=== PATIENT | male | born 2000 | race Two or more races ===

== ENCOUNTER 2020-08-06 13:39 | Emergency (ER) | payer OTHER ==
[2020-08-06] MEDS ORDERED: Sodium Chloride 0.9% 2.5 ML Syringe FLUSH PRN (13:55)
[2020-08-06] MEDS ORDERED: Ondansetron 4 MG/2 ML SDV IVPUSH ONE (13:55)
[2020-08-06] MEDS ORDERED: Sodium Chloride 0.9% 10 ML Syringe FLUSH PRN (13:55)
[2020-08-06] MEDS ORDERED: HYDROmorphone 1 MG/ML Syringe IVPUSH ONE ×3 (13:55→16:04)
[2020-08-06] MEDS ORDERED: Diphtheria,Pertussis(Acell),Tetanus Vaccine 0.5 ML Syringe IM ONE (14:09)
--- NOTE | 2020-08-06 14:09 | EDM.PDOC ---
ED HPI GENERAL MEDICAL PROBLEM - General Chief Complaint: Lower Extremity Injury/Pain Stated Complaint: LFT BIG TOE Time Seen by Provider: 08/06/20 13:44 Source of Information: Reports: Patient History Limitations: Reports: No Limitations - History of Present Illness INITIAL COMMENTS - FREE TEXT/NARRATIVE: HISTORY AND PHYSICAL: History of present illness: The patient is a 19-year-old male who presents to the emergency department with a open wound to his right great toe after dropping a metal tank on his right foot while wearing his steel toed shoes. The patient is French-speaking and as such the sign language interpreter tablet was utilized during the interview and examination. The patient did not take any medications prior to arrival nor did he attempt to clean the wound up in any way. The patient is unsure of when his last tetanus was. Review of systems: As per history of present illness and below otherwise all systems reviewed and negative. Past medical history: As per history of present illness and as reviewed below otherwise noncontributory. Surgical history: As per history of present illness and as reviewed below otherwise noncontributory. Social history: See social history for further information Family history: As per history of present illness and as reviewed below otherwise noncontributory. Physical exam: General: Well developed and well nourished. Alert and orientated x 3. Nontoxic in appearance and in mild acute distress. Vital signs are stable and have been reviewed by me. Nursing notes were reviewed. HEENT: Atraumatic, normocephalic, pupils equal and reactive bilaterally, negative for conjunctival pallor or scleral icterus, mucous membranes moist, TMs normal bilaterally, throat clear, neck supple, nontender, trachea midline. No drooling or trismus noted. No meningeal signs. No hot potato voice noted. Lungs: Clear to auscultation bilaterally. No wheezes, rales, or rhonchi. Chest nontender. Normal work of breathing, no accessory muscles used. Heart: S1S2, regular rate and rhythm without overt murmur, gallops, or rubs. No JVD. No peripheral edema Abdomen: Soft, nondistended, nontender. Normoactive bowel sounds. Negative for masses or costovertebral tenderness. Skin: Left great toe medial aspect at base of nail bed lacerated extending up to medial tip of toe nail. The toe nail is hanging on by medial skin flap. Lucinda rovascular intact. Skin warm & dry. No lesions or rashes noted. Hematologic: No petechiae or purpra. Mucosa appropriate color and normal nail bed color and refill. Extremities: See skin. Moves all other extremities per self without difficulty or deficits, negative for cords or calf pain. Neurovascular unremarkable. Neuro: Awake, alert, oriented. Cranial nerves II through XII unremarkable. Cerebellum unremarkable. Motor and sensory unremarkable throughout. Exam nonfocal. Psychiatric: Mood and affect are appropriate. Normal thought process. Answering questions appropriately. Notes: *This patient was seen and evaluated during the 2019 SARS-CoV-2 novel coronavirus pandemic period. Community viral transmission is ongoing at time of this encounter and the emergency department is operating under pandemic response procedures. As stated above the patient is an 18-year-old male who presents after dropping a metal tank on his left foot. His right great toe is open from the inner aspect around the nailbed. I will obtain an x-ray of his left foot. I have treated his pain with Dilaudid 1 mg and Zofran 4 mg IV. The patient states he is not allergic to any medications after using the sign language interpreter tablet. I have explained to the patient the need for a foot x-ray. I have ordered a tetanus vaccination. The patient's Findings/Impression: Bones: A crush type fracture is present in the distal tuft of the left 1st toe. There is also fracture in the base of the distal phalanx in the 2nd toe. No other osseous abnormality. Joint spaces: Unremarkable. Soft tissues: Soft tissue injury in the distal 1st toe. Using the sign language interpreter tablet the patient and his family members were informed of the open fracture and the need for IV antibiotics, Ancef 2 g IV. I explained the need for the suturing, and walking shoe and crutches. I also explained the need to follow-up with , the [facility] helicopter. I have made an appointment with the naval aircrewman helicopter for August 12 at 4 PM. The procedure note for suture. The patient tolerated well. I have talked with the patient about today's findings, in addition to providing specific details for plan of care. Reassessment at the time of disposition demonstrates that the patient is in no acute distress. The patient is stable for discharge, counseling was provided and we discussed in great detail signs and symptoms that would prompt them to return to the Emergency Department. Medication, follow up and supportive care measures were reviewed and discussed. Voices understanding and is agreeable to plan of care. Denies any further questi ons or concerns at this time. Diagnostics: Right foot x-ray Therapeutics: Dilaudid 2 mg, Zofran 1 mg Prescription:Left walking shoe patient to wear until follow-up with diet wrist for patient comfort and promote joint stabilization for healing. Adena 5/325mg 1 every 4-6 hours as needed for pain #28. Impression: Left great toe open fracture left second toe fracture Plan: 1. You were evaluated today on an emergent basis. Your were evaluated for your left big toe open area after a piece of equipment was dropped on it. You have a fracture of that last bone on your left big toe. You were treated with an antibiotic called [facility] for the open fracture. Your big toe was fixed by sutures. You will need to keep that area clean and dry. Do not submerge your foot in water. You can change your dressing after 24 hours and then daily. But keep a dressing and the walking boot on until you follow-up with the naval aircrewman helicopter. Your appointment with the naval aircrewman helicopter is on August 12 at 4 PM. You will need to use crutches until your follow-up with the naval air[facility]w[employer] helicopter. 2. I will prescribe you Adena 1 every 4-6 hours as needed for pain. 3. Keep the area clean and dry. Continue to monitor for signs of infection. Sutures to be removed in 7-10 days. 4. Tylenol and/or ibuprofen as needed for pain management. 5. Please follow-up with your primary care provider in the next 1-2 days. Return to the ED as needed and as discussed. Definitive disposition and diagnosis as appropriate pending reevaluation and review of above. Left Foot Pain Score (Numeric/FACES): 10 - Related Data Allergies Allergy/AdvReac Type Severity Reaction Status Date / Time No Known Allergies Allergy Verified 08/06/20 13:54 Home Meds: Home Meds . [No Known Home Meds] 08/06/20 [History] Past Medical History - Past Health History Medical/Surgical History: Denies Medical/Surgical History HEENT History: Reports: None Cardiovascular History: Reports: None Respiratory History: Reports: None Gastrointestinal History: Reports: None Genitourinary History: Reports: None Musculoskeletal History: Reports: None Neurological History: Reports: None Psychiatric History: Reports: None Endocrine/Metabolic History: Reports: None Hematologic History: Reports: None Immunologic History: Reports: None Oncologic (Cancer) History: Reports: None Dermatologic History: Reports: None - Infectious Disease History Infectious Disease History: Reports: None - Past Surgical History Head Surgeries/Procedures: Reports: None Social & Family History - Family History Family Medical History: No Pertinent Family History - Tobacco Use Tobacco Use Status *Q: Never Tobacco User - Caffeine Use Caffeine Use: Reports: None - Recreational Drug Use Recreational Drug Use: No Review of Systems - Review of Systems Review Of Systems: Comprehensive ROS is negative, except as noted in HPI. ED EXAM, GENERAL - Physical Exam Exam: See Below (See dictation) ED TRAUMA EXTREMITY PROCEDURES - Laceration/Wound Repair Left Medial Toe - Great Lac/Wound Length In cm: 3.5 Appearance: Subcutaneous Distal NVT: Neuro & Vascular Intact, No Tendon Injury Anesthetic Type: Local Local Anesthesia - Lidocaine (Xylocaine): 1% Plain Local Anesthetic Volume: 5cc Skin Prep: Saline Saline Irrigation (cc's): 500 Exploration/Debridement/Repair: Wound Explored, No Foreign Material Found Closed With: Sutures Suture Size: 4-0 Suture Type: Prolene, Interrupted Suture Size: 4-0 # of Sutures: 2 (nailbed) Repaired With: Vicryl Course - Vital Signs Last Recorded V/S: Last Vital Signs Temp 98.6 F 08/06/20 13:49 Pulse 78 08/06/20 16:28 Resp 18 08/06/20 16:28 BP 124/85 08/06/20 16:28 Pulse Ox 98 08/06/20 16:28 - Orders/Labs/Meds Orders: Active Orders 24 hr Category Date Time Status Vaccines to be Administered [RC] PER UNIT ROUTINE Care 08/06/20 14:09 Active Sodium Chloride 0.9% [Saline Flush] Med 08/06/20 13:55 Active 10 ml FLUSH ASDIRECTED PRN Sodium Chloride 0.9% [Saline Flush] Med 08/06/20 13:55 Active 2.5 ml FLUSH ASDIRECTED PRN DME for Discharge [COMM] Stat Oth 08/06/20 16:13 Ordered Saline Lock Insert [OM.PC] Stat Oth 08/06/20 13:55 Ordered Medication Orders Sodium Chloride (Sodium Chloride 0.9% 10 Ml Syringe) 10 ml FLUSH ASDIRECTED PRN PRN Reason: Keep Vein Open Last Admin: 08/06/20 13:59 Dose: 10 ml Documented by: VIBHA Sodium Chloride (Sodium Chloride 0.9% 2.5 Ml Syringe) 2.5 ml FLUSH ASDIRECTED PRN PRN Reason: Keep Vein Open Last Admin: 08/06/20 13:59 Dose: 2.5 ml Documented by: VIBHA Meds: Medications Generic Name Dose Route Start Last Admin Trade Name Freq PRN Reason Stop Dose Admin Sodium Chloride 10 ml 08/06/20 13:55 08/06/20 13:59 Sodium Chloride 0.9% 10 Ml Syringe FLUSH 10 ml ASDIRECTED PRN Administration Keep Vein Open Sodium Chloride 2.5 ml 08/06/20 13:55 08/06/20 13:59 Sodium Chloride 0.9% 2.5 Ml Syringe FLUSH 2.5 ml ASDIRECTED PRN Administration Keep Vein Open Discontinued Medications Generic Name Dose Route Start Last Admin Trade Name Freq PRN Reason Stop Dose Admin Diphtheria/Tetanus/Acell Pertussis 0.5 ml 08/06/20 14:09 08/06/20 14:29 Diphtheria,Pertussis(Acell),Tetanus Vaccine 0.5 Ml Syringe IM 08/06/20 14:10 0.5 ml .ONCE ONE Administration Hydromorphone HCl 1 mg 08/06/20 13:55 08/06/20 13:59 Hydromorphone 1 Mg/Ml Syringe IVPUSH 08/06/20 13:56 1 mg ONETIME ONE Administration Hydromorphone HCl 1 mg 08/06/20 14:21 08/06/20 14:30 Hydromorphone 1 Mg/Ml Syringe IVPUSH 08/06/20 14:22 1 mg ONETIME ONE Administration Hydromorphone HCl 1 mg 08/06/20 16:04 08/06/20 16:23 Hydromorphone 1 Mg/Ml Syringe IVPUSH 08/06/20 16:05 1 mg ONETIME ONE Administration Cefazolin Sodium/Dextrose 1 gm 50 mls @ 100 mls/hr 08/06/20 14:33 08/06/20 14:56 / Premix IV 08/06/20 15:02 100 mls/hr ONETIME ONE Administration Cefazolin Sodium/Dextrose 1 gm 50 mls @ 100 mls/hr 08/06/20 14:35 08/06/20 14:57 / Premix IV 08/06/20 15:04 100 mls/hr ONETIME ONE Administration Lidocaine 5 ml 08/06/20 15:12 08/06/20 15:18 Lidocaine 2% 5 Ml Sdv INJECT 08/06/20 15:13 Not Given ONETIME ONE Lidocaine HCl 5 ml 08/06/20 14:36 08/06/20 14:56 Lidocaine 1% 5 Ml Sdv INJECT 08/06/20 14:37 5 ml ONETIME ONE Administration Lidocaine HCl 5 ml 08/06/20 15:16 08/06/20 15:17 Lidocaine 1% 5 Ml Sdv INJECT 08/06/20 15:17 5 ml ONETIME ONE Administration Lidocaine HCl Confirm 08/06/20 15:13 08/06/20 15:18 Lidocaine 1% 5 Ml Sdv Administered 08/06/20 15:14 Not Given Dose 5 ml .ROUTE .STK-MED ONE Octyl Cyanoacrylate 1 applic 08/06/20 16:07 08/06/20 16:25 Octyl 2-Cyanoacrylate 1 Tube TOP 08/06/20 16:08 1 applic ONETIME ONE Administration Octyl Cyanoacrylate Confirm 08/06/20 16:07 08/06/20 16:25 Octyl 2-Cyanoacrylate 1 Tube Administered 08/06/20 16:08 Not Given Dose 1 applic .ROUTE .STK-MED ONE Ondansetron HCl 4 mg 08/06/20 13:55 08/06/20 13:59 Ondansetron 4 Mg/2 Ml Sdv IVPUSH 08/06/20 13:56 4 mg ONETIME ONE Administration Departure - Departure Time of Disposition: 16:33 Disposition: Home, Self-Care 01 Clinical Impression: Open fracture of great toe Qualifiers: Encounter type: initial encounter Phalanx: distal Fracture alignment: displaced Laterality: left Qualified Code(s): S92.422B - Displaced fracture of distal phalanx of left great toe, initial encounter for open fracture Fracture of second toe, left, closed Qualifiers: Encounter type: initial encounter Qualified Code(s): S92.502A - Displaced unspecified fracture of left lesser toe(s), initial encounter for closed fracture Contusion Qualifiers: Encounter type: initial encounter Contusion area: foot Laterality: left Qualified Code(s): S90.32XA - Contusion of left foot, initial encounter - Discharge Information *PRESCRIPTION DRUG MONITORING PROGRAM REVIEWED*: Not Applicable *COPY OF PRESCRIPTION DRUG MONITORING REPORT IN PATIENT DONYA: Not Applicable Instructions: Toe Fracture, [id number], Laceration Care, Adult Referrals: PCP,None [Primary Care Provider] - Forms: ED Department Discharge Additional Instructions: The following information is given to patients seen in the emergency department who are being discharged to home. This information is to outline your options for follow-up care. We provide all patients seen in our emergency department with a follow-up referral. The need for follow-up, as well as the timing and circumstances, are variable depending upon the specifics of your emergency department visit. If you don't have a primary care physician on staff, we will provide you with a referral. We always advise you to contact your personal physician following an emergency department visit to inform them of the circumstance of the visit and for follow-up with them and/or the need for any referrals to a consulting specialist. The emergency department will also refer you to a specialist when appropriate. This referral assures that you have the opportunity for follow-up care with a specialist. All of these measure are taken in an effort to provide you with optimal care, which includes your follow-up. Under all circumstances we always encourage you to contact your private physician who remains a resource for coordinating your care. When calling for follow-up care, please make the office aware that this follow-up is from your recent emergency room visit. If for any reason you are refused follow-up, please contact the [facility] Emergency Department at and asked to speak to the emergency department charge nurse. Dr. Osmany Estevez [address] [place] [address] Appointment August 12 @ 4pm. Occupational health clinic at [facility] [address] [place] [address] fax [phone] Plan: 1. You were evaluated today on an emergent basis. Your were evaluated for your left big toe open area after a piece of equipment was dropped on it. You have a fracture of that last bone on your left big toe. You were treated with an antibiotic called Ancef for the open fracture. Your big toe was fixed by sutures. You will need to keep that area clean and dry. Do not submerge your foot in water. You can change your dressing after 24 hours and then daily. But keep a dressing and the walking boot on until you follow-up with the naval air[facility]wman helicopter. Your appointment with the naval aircrewman helicopter is on August 12 at 4 PM. You will need to use crutches until your follow-up with the naval aircrewman helicopter. 2. I will prescribe you Adena 1 every 4-6 hours as needed for pain. 3. Keep the area clean and dry. Continue to monitor for signs of infection. Sutures to be removed in 7-10 days. 4. Tylenol and/or ibuprofen as needed for pain management. 5. Please follow-up with your primary care provider in the next 1-2 days. Return to the ED as needed and as discussed. Definitive disposition and diagnosis as appropriate pending reevaluation and review of above. Plan: 1. Usted fue evaluado hoy de forma emergente. Se le evalu el fernando abierta del dedo laxmi del pie teresita despus de que se le renato kyrie pieza de equipo. Tiene kyrie fractura del ltimo hueso del dedo laxmi del pie teresita. Lo trataron con un antibitico llamado Ancef para la fractura abierta. Peña dedo laxmi fue fijado con suturas. Deber mantener michael fernando limpia y seca. No sumerjas tu pie en agua. Puede cambiar peña vendaje despus de 24 horas y luego todos los berg. Mode mantngase un vendaje y la bota para caminar puestos hasta que kim un seguimiento con el podlogo. Peña hemanth con el podlogo es el jueves a las 4 p.m. Deber usar muletas hasta peña seguimiento con el podlogo. 2. Le recetar Adena 1 cada 4-6 horas segn sea necesario para el dolor. 3. Mantenga el fernando limpia y seca. Contine controlando los signos de infeccin. Las suturas se retiran en 7-10 berg. 4. Tylenol y / o ibuprofeno segn sea necesario para el manejo del dolor. 5. Kim un seguimiento con peña proveedor de atencin primaria en los prximos 1-2 berg. Regrese al servicio de urgencias segn sea necesario y segn lo comentado. Disposicin y diagnstico definitivos, segn corresponda, en espera de la reevaluacin y revisin de lo anterior. Sepsis Event Note (ED) - Evaluation Sepsis Screening Result: No Definite Risk - Focused Exam Vital Signs: Vital Signs Temp Pulse Resp BP Pulse Ox 08/06/20 16:28 78 18 124/85 98 08/06/20 15:18 74 18 141/98 H 98 08/06/20 14:24 90 18 143/86 H 98 08/06/20 13:49 98.6 F 96 18 154/89 H 98 - My Orders Last 24 Hours: My Active Orders 08/06/20 14:09 Vaccines to be Administered [RC] PER UNIT ROUTINE 08/06/20 16:13 DME for Discharge [COMM] Stat - Assessment/Plan Last 24 Hours: My Active Orders 08/06/20 14:09 Vaccines to be Administered [RC] PER UNIT ROUTINE 08/06/20 16:13 DME for Discharge [COMM] Stat
[2020-08-06] MEDS ORDERED: ceFAZolin 1 GM in Premix Bag 1 BAG IV ONE ×2 (14:33→14:35)
--- NOTE | 2020-08-06 14:49 | CR ---
Indication: Injury and pain Technique: Left foot 3 views Comparison: None Findings/Impression: Bones: A crush type fracture is present in the distal tuft of the left 1st toe. There is also fracture in the base of the distal phalanx in the 2nd toe. No other osseous abnormality. Joint spaces: Unremarkable. Soft tissues: Soft tissue injury in the distal 1st toe. Dictated by William Bucio MD @ 08/06/2020 2:48:[address] William Bucio @ Aug 06 2020 2:48PM
[2020-08-06] MEDS ORDERED: Lidocaine 2% 5 ML SDV INJECT ONE (15:12)
[2020-08-06] MEDS ORDERED: Octyl 2-Cyanoacrylate 1 Tube ONE (16:07)
[2020-08-06] MEDS ORDERED: Octyl 2-Cyanoacrylate 1 Tube TOP ONE (16:07)
== END 2020-08-06 17:06 | disposition home or self-care (01) ==
LOC: MW.ED 13:39
DX: S92.422B Displaced fracture of distal phalanx of left great toe, initial encounter for open fracture (principal); S92.502A Displaced unspecified fracture of left lesser toe(s), initial encounter for closed fracture; Z23 Encounter for immunization; W20.8XXA Other cause of strike by thrown, projected or falling object, initial encounter
CPT/HCPCS: 73630; 90471; 90715; 96365; 96375; 96376; 99283; A9270; J0690; J1170; J2405

== ENCOUNTER 2020-08-21 12:48 | Emergency (ER) | payer OTHER | END 2020-08-21 14:32 | disposition home or self-care (01) | LOC: MW.ED 12:48 | DX: S91.112D Laceration without foreign body of left great toe without damage to nail, subsequent encounter (principal); W20.8XXD Other cause of strike by thrown, projected or falling object, subsequent encounter | CPT/HCPCS: 99281 ==